=== PATIENT | female | born 1960 | race Native Hawaiian/Other Pacific Islander ===

== ENCOUNTER 2018-07-30 08:08 | Outpatient (CLI) | payer BC ==
[~2018-07-30 08:08] MED LIST: ADLT ASA LOW81 MG OR; ATEN25TA21 PO; CETI10TA PO; GLIP10TA55 PO; LEVO0.0529 PO; LISI5TAB10 PO; METF100038 OR; SIMV40TA57
== END 2018-07-30 22:24 | disposition home or self-care (01) ==
LOC: MRI 08:08
DX: M50.00 Cervical disc disorder with myelopathy, unspecified cervical region (principal)

== ENCOUNTER 2022-04-27 10:01 | Outpatient (CLI) | payer BC | END 2022-04-27 19:15 | disposition home or self-care (01) | LOC: US 10:01 | PROVIDERS: ATTEND Internal Medicine | DX: N18.32 Chronic kidney disease, stage 3b (principal) ==